=== PATIENT | male | born 1980 | race Caucasian/White ===

== ENCOUNTER 2021-12-15 06:10 | Day surgery (SDC) | payer BC, OTHER ==
[2021-12-15] MEDS ORDERED: Lactated Ringers 1,000 ML IV SCH (06:30)
[2021-12-15] MEDS ORDERED: Versed 2 MG/2 ML Injection ONE (07:51)
[2021-12-15] MEDS ORDERED: Xylocaine-Mpf 2% 5 Ml Vial ONE (07:51)
[2021-12-15] MEDS ORDERED: DIPRIVAN 200 MG/20 ML IV ONE ×2 (07:51→08:11)
[2021-12-15 08:58] VITALS: O2SAT 97
[2021-12-15 09:40] VITALS: PULSE 52
[2021-12-15 09:42] VITALS: BP 126/83
--- NOTE | 2021-12-15 11:03 | OP ---
SURGERY DATE/TIME: 12/15/2021 0800 PREOPERATIVE DIAGNOSIS: Epigastric pain. POSTOPERATIVE DIAGNOSES: 1) Hiatal hernia. 2) Mild gastritis. PROCEDURE: Esophagogastroduodenoscopy with biopsy. SURGEON: Dr. Vaughn. ANESTHESIA: Medications were given by the anesthesia department. BRIEF HISTORY: The patient is a 41-year-old white male patient who has been having problems with increasing abdominal pain. He reports he has been taking Nexium for the past ten years but started Aleve daily for the last six months. He has been having epigastric pain so bad he presented to the emergency room for what he thought was a heart attack. The patient was instructed to stop taking Aleve. He has also instructed to take famotidine [id number]. The patient also reports history of gastric sleeve placement, loss of 150 pounds which was placed several years ago as well. The patient was felt the need to have endoscopic evaluation. He was appraised of the risks of the procedure including the risk of perforation, phlebitis, untoward reaction to medication, bleeding and missed lesions. The patient verbalized his understanding and desired to have the procedure performed. DESCRIPTION OF PROCEDURE: The patient was given the medications by the anesthesia department. He had continuous pulse oximetry, ECG monitoring, intermittent blood pressure monitoring and tidal CO2 monitoring during the examination. He was placed in the left lateral decubitus position. A bite block was placed and the flexible Olympus gastroscope was used to intubate the oropharynx. A view of the larynx was obtained and this was normal. The scope was easily passed in the esophagus which appeared to be normal throughout its length. The stomach was entered where gastric rugal folds were seen and somewhat resistant to insufflation likely due to presence of the gastric sleeve. The scope was passed along the greater curvature of the stomach to the antrum. The pylorus was encountered and intubated. The duodenum inspected and found to be normal. The scope is withdrawn towards the stomach again. We noted a fairly large hiatal hernia. At this point the scope was redirected towards the antrum. Biopsies were obtained to rule out the presence of Helicobacter pylori-type organisms. The scope was then removed from the patient who tolerated the procedure well and was sent back to the hospital [facility] in good condition.
== END 2021-12-15 09:27 | disposition home or self-care (01) ==
LOC: SDC 06:10
PROVIDERS: ATTEND Family Medicine
DX: K44.9 Diaphragmatic hernia without obstruction or gangrene (principal); K29.70 Gastritis, unspecified, without bleeding; R10.13 Epigastric pain
CPT/HCPCS: J2250; J2704